=== PATIENT | female | born 1965 | race Caucasian/White ===

== ENCOUNTER 2018-11-17 21:53 | Inpatient (IN) | payer MEDICARE, SELFPAY ==
[2018-11-17 22:07] VITALS: BP 145/79; PULSE 96; RESP 17; TEMP 37; O2SAT 96
--- NOTE | 2018-11-17 22:31 | ED.GENADUL_ITS ---
Discharge Plan Disposition Patient Disposition: [facility] INPATIENT Condition: Stable Discharge Details Chief Complaint: PsychEval Clinical Impression: Acute paranoia, History of schizophrenia Primary Care Provider: Colleen,Local ED Provider: Tatum Lawler Home Meds and New Rx's Prescriptions: No Action risperidone [Risperdal] 2 mg Tablet 1 mg QHS RF: 0 Discharge Data Discharge Physician: Tatum Lawler Medical Decision Making <Yang Donovan MD - Last Filed: 11/18/18 08:16> Patient here for medical screening/mental health eval. Reportedly has history of schizophrenia. At this time she is unable to tell me where she is, what the date is, who is looking for her, who the president is. She is able to tell me where she is from and is able to spell world forward and backwards. She is definitely evasive. I will hold her here for mental health eval. I was able to speak to the patient's son, Nuno. He reports that she does have a history of schizophrenia. She did go missing once before but only for a couple of hours. She is supposed to be on IM injections monthly for her psychiatric disorder. He and probably other family members will be on their way up overnight and will be here in the morning. Patient's laboratory studies are unremarkable. White count is little elevated. Chemistries are fine. Alcohol level is 0. She is being cooperative for the most part. She will not answer questions for mental health. I am not going to EEG her because I think she is probably baseline. However, I cannot let her leave on her own due to lack of capacity. I do think she will probably be safe to be released into the care of her son. 01:00 - Tylenol and aspirin have come back negative. Urine drug screen positive for barbiturates and amphetamines. Urinalysis negative. Patient remains cooperative. She has been offered food and water which she is declined. She has been offered a blanket that she can go to sleep which she is also declined. She is aware that she is waiting till morning for reevaluation and possible discharge. 08:00 -still waiting for son to arrive. Patient without issue overnight. Urine drug screen was eventually obtained and is positive for barbiturates and amphetamines. Definitely may be contributing to her increased paranoia. Still think she is safe for discharge into the son's care if he agrees she seems to be baseline for him. Lab Data Lab results reviewed: Yes I reviewed the patient's lab results. <Tatum Lawler DO - Last Filed: 11/18/18 20:17> Please see Dr. Donovan's note for initial presentation, exam and plan. Patient is a 53-year-old female with a history of schizophrenia who presented for mental health evaluation after found at a nearby gas station and determined to be a missing person from [place]. Per Dr. Donovan's evaluation and discussion with son, it was thought that she was most likely at her baseline and could be released into the care of her son. She was medically cleared and plan upon endorsement was to wait for her son to arrive to take her back home. 1800 --son now here in the ED and patient is refusing to go with him. After long discussion with son, he states that he is concerned with taking patient home as he is unsure of his or her safety. He states that she seems at her baseline when she has episodes of paranoia associated with her schizophrenia, but he states that he is concerned if he attempts to rest for the night, he is unsure if she will leave or what she will do. Patient discussed with me that she is refusing to go with him. Patient denies to me a history of schizophrenia. Patient states she would like to stay in the emergency department. She appears to lack insight into her current condition and I do not think she has a capacity to make her own decisions. She expressed to care management that she would like to be admitted to a psychiatric facility - She has refused this plan to me as well as mental health. Discussed with mental health and patient seems appropriate for involuntary psychiatric hospitalization at this time as she is refusing to go with son and will not leave the ED. EE paperwork completed. Will admit patient to the floor overnight while awaiting inpatient hospitalization and second certificate completion in 24 hours. 1999 --Case discussed with hospitalist Dr. Juan -accepts patient for admission to the floor. HPI <Yang Donovan MD - Last Filed: 11/18/18 08:16> General Mode of arrival: ambulatory . Date/Time Provider Initiated Documentation: 11/17/18 22:18 . Limitations to Documentation: other (psych) . Information obtained by: patient and police . HPI Narrative: Patient presents to ED with police for mental health evaluation. Patient is apparently from [place]. There has been a missing person alert for the last 2 days from [place]. Per the police here, [place] police report that she has schizophrenia. She does tell me she has medication, Risperdal. She denies any medical or surgical history. She denies drug or alcohol use. She has no physical complaints of. She was found in the parking lot of a local truck stop where she is been all day. She denies being suicidal or homicidal. She is able to tell me where she is from and what the year is but she is unable to tell me where she is, the month, the date, the president. Related Data Home Medications Medication Instructions Recorded Confirmed risperidone [Risperdal] 11/17/18 Allergies Allergy/AdvReac Type Severity Reaction Status Date / Time No Known Allergies Allergy Unverified 11/17/18 22:14 General Stated Complaint: PsychEval AVELINO: 2 Review of Systems <Yang Donovan MD - Last Filed: 11/18/18 08:16> Review of Systems Unobtainable due to mental condition [facility] <Yang Donovan MD - Last Filed: 11/18/18 08:16> Medical History Schizophrenia (Chronic) Social History Smoking/Tobacco Use Status: Never Alcohol Intake: never Drug use: Never Do you feel safe at home: No Exam <Yang Donovan MD - Last Filed: 11/18/18 08:16> Narrative Exam Narrative: Vitals: Afebrile. Mildly tachycardic with elevated blood pressure. Const: WDWN female in NAD. HEENT: NC/AT. Normal facial exam. Eyes: Normal conjunctiva and sclera. PERRL and EOMI. Neck: Supple. Trachea midline. Lungs: Normal respiratory effort. Lungs are clear. Cor: RRR without murmur/gallop. Good radial pulses. Neuro: A+O x 1. CN grossly in tact. Good strength and no focal deficit. Tremor present in hands. Gait normal. Speech normal. Ext: No C/C/E. No deformity or tenderness. Skin: Warm and dry without rash. Psych: Pleasant. Evasive. Denies SI or HI. Denies hallucinations. Course <Yang Donovan MD - Last Filed: 11/18/18 08:16> Vital Signs Temperature 98.6 F 11/17/18 22:07 Pulse 96 H 11/17/18 22:07 Respiratory Rate 17 11/17/18 22:07 Blood Pressure 145/79 H 11/17/18 22:07 Pulse Oximetry 96 11/17/18 22:07 Temperature 98.6 F 11/17/18 22:07 Temperature Source Temporal Artery Scan 11/17/18 22:07 Pulse 96 H 11/17/18 22:07 Respiratory Rate 17 11/17/18 22:07 Respiratory Effort 11/17/18 22:07 Blood Pressure 145/79 H 11/17/18 22:07 Pulse Oximetry 96 11/17/18 22:07 Oxygen Delivery Method Room Air 11/17/18 22:07 Oxygen Flow Rate 0 11/17/18 22:07 Pain Level 0 11/17/18 22:07 Sign Out <Yang Donovan MD - Last Filed: 11/18/18 08:16> Sign Out Data: Sign Out Comment: Still waiting for the patient's son to arrive. Patient has slept all night and there have been no issues. Case discussed with Dr. Lawler who is accepting patient in signout with plan to release patient into the care of her son once he arrives. Last updated by Yang Donovan MD at 11/18/18 08:15
--- NOTE | 2018-11-17 22:45 | NUR.NOTE ---
Nursing Note: pt is now in paper srubs and has cpso at the room with pt and mh has been called
--- NOTE | 2018-11-17 22:46 | NUR.NOTE ---
Nursing Note: talked with damaso thakur about who put out missing person on the pt, the trolanei was going to call [facility] police to get more information and call us back
[2018-11-17 23:20] LABS: Abs Immature Grans 0.03 k/cumm (0.0-0.09); Absolute Basophil Count 0.04 k/cumm (0.0-0.2); Absolute Eosinophil Count 0.18 k/cumm (0.0-0.7); Absolute Monocyte Count 1.24 k/cumm (0.11-0.7); Absolute Neutrophil Count 10.11 k/cumm (1.2-6.7); Basophils % 0.3; Eosinophils % 1.3; HCT 43.5 % (36.0-46.0); HGB 14.5 g/dL (12.0-15.5); Immature Grans % 0.2; Lymphocytes % 18.3; Mean Corp. HGB Concentration 33.3 g/dL (32.0-36.0); Mean Corpuscular Hemoglobin 29.7 pg (27.0-33.0); Mean Corpuscular Volume 89.1 fL (80-95); Mean Platelet Volume 9.4 fL (8.0-11.0); Monocytes % 8.7; Neutrophils % 71.2; Platelet Count 409 x1000/uL (130-400); RBC 4.88 m/cumm (4.00-5.20); RBC Distribution Width 13.1 % (11.7-14.6)
[2018-11-17 23:43] LABS: ALT 17 U/L (12-78); AST 13 U/L (15-37); Alkaline Phosphatase 72 U/L (46-116); Anion Gap 14.7 mmol/L (3-11); BUN 16 mg/dL (7-18); Bilirubin, Total 0.6 mg/dL (0.2-1.0); CO2 22.3 mmol/L (21.0-32.0); CREATININE 0.85 mg/dL (0.55-1.02); Chloride 101 mmol/L (98-107); Glucose 125 mg/dL (70-100); Potassium 3.5 mmol/L (3.5-5.1); Sodium 138 mmol/L (136-145); TSH 4.47 uIU/mL (0.358-3.74); Total Protein 8.1 g/dL (6.4-8.2)
[2018-11-17 23:44] LABS: ETHANOL BLOOD < 3.0 mg/dL (<3)
--- NOTE | 2018-11-17 23:59 | PDOC.MHCN ---
Mental Health Crisis Note Presenting Issue How did you arrive at the ED and why did you come: Patient stated police brought me here, I didn't do anything wrong. Emergency worker inquired where patient was picked up? Patient stated from the area. Emergency worker inquired if patient lives near by? Patient stated that shes from the area. Precipitating Factors Patient denies feelings of SI/HI. Patient denies hallucinations of any kind. Disposition BEHAVIOR: Patient appeared annoyed that emergency worker was asking questions. Patient stated don't you have my chart in front of you. EYE CONTACT: Patient made some eye contact during screening. MOOD: annoyed AFFECT: flat APPETITE: Patient stated her appetite was fine. SLEEP(trouble falling/staying asleep: Patient stated everything's good Plan Patient stated that she would e staying the night here at the hospital. Emergency worker spoke with Doctor and learned that patient had been picked up by the state police in the parking lot of [facility], [place], the store team member stated that she had been there in her car all day. Patient was reported missing from [place] since Tuesday. Patients son will be coming to get her in the morning as he has about an eight [address] drive. Patients son shared that Parul takes a monthly shot to manage schizophrenia episodes, yesterday she was due for her next shot and missed it. Patient was not able to tell Emergency worker where she was from and was not willing to share anymore information. The Doctor stated that patient would stay here until her son picks her up in the morning. Signature Clinician's Name/Title: Matthew Webber/ Emergency services worker
[2018-11-18] VITALS (12 sets, daily range): BP systolic 124–145; BP diastolic 79–82; PULSE 84–96; RESP 13–22; TEMP 37; O2SAT 95–96
[2018-11-18 00:08] LABS: Salicylate < 2.8 mg/dL (2.8-20.0)
--- NOTE | 2018-11-18 00:22 | PDOC.MHCN_ITS ---
Mental Health Crisis Note Presenting Issue How did you arrive at the ED and why did you come: Patient stated police brought me here, I didn't do anything wrong. Emergency worker inquired where patient was picked up? Patient stated from the area. Emergency worker inquired if patient lives near by? Patient stated that shes from the area. Precipitating Factors Patient denies feelings of SI/HI. Patient denies hallucinations of any kind. Disposition BEHAVIOR: Patient appeared annoyed that emergency worker was asking questions. Patient stated don't you have my chart in front of you. EYE CONTACT: Patient made some eye contact during screening. MOOD: annoyed AFFECT: flat APPETITE: Patient stated her appetite was fine. SLEEP(trouble falling/staying asleep: Patient stated everything's good Plan Patient stated that she would e staying the night here at the hospital. Emergency worker spoke with Doctor and learned that patient had been picked up by the state police in the parking lot of [facility], the storeroom clerk stated that she had been there in her car all day. Patient was reported missing from [place] since Tuesday. Patients son will be coming to get her in the morning as he has about an eight [address] drive. Patients son shared that Parul takes a monthly shot to manage schizophrenia episodes, yesterday she was due for her next shot and missed it. Patient was not able to tell Emergency worker where she was from and was not willing to share anymore information. The Doctor stated that patient would stay here until her son picks her up in the morning. Signature Clinician's Name/Title: Matthew Webber/ Emergency services worker
[2018-11-18 00:25] LABS: Acetaminophen < 2 ug/mL (10-30)
[2018-11-18 00:54] LABS: Bilirubin Negative (Negative); Blood Trace-intact (Negative); Clarity Clear; Glucose Negative (Negative); Ketones Negative (Negative); Leukocyte Esterase Negative (Negative); Nitrite Negative (Negative); Specific Gravity >= 1.030 (1.005-1.025); Urobilinogen 0.2 EU/dL (Up TO 0.2)
[2018-11-18 01:01] LABS: Bacteria Moderate HPF (Negative); C & S Indicated? No/Sq. Contamination; Casts Negative LPF (Negative); Crystals Negative HPF (Negative); Epithelial Cells Many HPF (Negative); Mucus Heavy (Negative); RBC 0-2 (0-2); WBC 0-2 HPF (0-5)
[2018-11-18 01:04] LABS: *AMPHETAMINES SCREEN URINE POSITIVE (Negative); *BARBITURATES SCREEN URINE POSITIVE (Negative); *BENZODIAZEPINES SCREEN URINE Negative (Negative); Cannabinoids THC Negative (Negative); Cocaine Screen,Urine Negative (Negative); METHADONE URINE SCREEN Negative (Negative); OPIATES URINE SCREEN Negative (Negative); Tricyclic Antidepressants Negative (Negative)
--- NOTE | 2018-11-18 18:04 | NUR.NOTE ---
son of PT arrived at 1800. son talked with PT and reports to RN that PT does not want to return home with son. previously PT has stated to RN 3 times that she had no son. provider and RN attempting to negotiate and form a plan of action to dispo PT
--- NOTE | 2018-11-18 18:11 | CMPROGNOTE_ITS ---
- If Service Date Differs Date of service: 11/18/18 Time of Service: 13:30 Care Management Progress Note S/O: IRIS met with Parul in the ED she was found at local store and was brought to the hospital for safety concerns. Parul is not engaged she appears distracted and restless when CM into assess. She stares and often does not speak. IRIS asked Parul if she had a family she said no I am my own family. When CM brought up her sons name Nuno she denies having a son. During the assessment she is able to state I do have a son but we do not communicate. Parul is willing to allow CM to obtain Nuno's number from her cell phone to contact him. Parul states she is fine she expresses no needs. She is in paper clothing and has a CPSO outside the room. She was evaluated by mental health and it was determine that she was not suicidal or homicidal. IRIS requested permission from Parul to contact Nuno she is able to give CM verbal permission to do so. IRIS contacted Nuno [phone] and he states Parul does have a history of bipolar and schizophrenia and has has several hospitalizations related to her diagnosis in the past 10 years. He states in August she was found in [facility] in the same condition. He states that she was recently started on IM injections of her medications as she has a history of non compliance. He states she does receive community support services through mental health agency in [place]. He states it is not uncommon for her to take off in her car it seems to be the only independence she has. He episodes are more frequent when she is feeling stressed or with change. She has been accepted into a housing program and is due to move in on Tuesday he states this has been a stressful time for her due to the change. He feels that she will need assisted living at some point. Nuno will be here between 0 and 1829 to pick Parul up and bring her back to [place]. She will remain with CPSO as she is a elopement risk given the circumstance. CM did review with the patient measures to keep her safe until her son arrives and she agrees with the plan. Safety plan: 1. Parul remains in the ED with CPSO one on one observation due to her risk of elopement and her current ability to make decisions. 2. She remains in paper clothing and will change once her son arrives. 3. She will need CPSO with her at all times when out of the room. 4. No other restrictions at this time she will be discharged in her sons care once he arrives to the ED. Plan: Parul will return to [place] to her community supports with her son at time of discharge. Parul acknowledges the plan and does not agree or disagree with the plan. Parul will remain in the ED until family member arrives.
--- NOTE | 2018-11-18 18:59 | NUR.NOTE ---
PT has talked to RN, mental health, and provider in regards to being admitted to mental health facility. PT gave breef celery tier to each individual. firstly stating that she did and ending with no way
--- NOTE | 2018-11-18 19:09 | NUR.NOTE ---
RN and mental health both believe that PT is exhibiting extreme suspicion and mistrust in all her interactions. son states that i think my mom is scared but its hard to tell some times, i don't feel safe taking her home
--- NOTE | 2018-11-18 19:12 | NUR.NOTE ---
mental health advises that patient be EEd
--- NOTE | 2018-11-18 20:48 | W.PM.HP.N ---
Date of service: 11/18/18 Time of Service: 20:48 Assessment and Plan (1) Acute paranoia: Start date: 11/18/18 Current visit: Yes Status: Acute This is a 53-year-old lady from [place] who drove up to [place] and appears to have acute paranoia with confusion off her usual medical therapy for hernia. According to her family she usually receives a monthly injection for her schizophrenia and according to her medication list, she takes an antipsychotic orally on a nightly basis. We cannot confirm her actual medications but will continue risperidone at night if she allows. She also will have Ativan as needed for agitation. Mental health is consulted and will be attempting placement with involuntary inpatient psychiatric admission locally. She will be placed on observation until placed in psychiatric hospital. She may require another EE in 24 hours if she is not placed within that timeframe. (2) Schizo-affective type schizophrenia, subchronic state with acute exacerbation: Start date: 11/18/18 Current visit: Yes Status: Chronic Continue risperidone as patient allows needed. Minimize stimulation which seems to agitate patient. (3) Polysubstance abuse: Start date: 11/18/18 Current visit: Yes Status: Acute Patient's urine drug screen was positive for amphetamines and barbiturates but not opiates. Patient is not able to discuss drug use. (4) TSH elevation: Start date: 11/18/18 Current visit: Yes Status: Acute A thyroid cascade will be drawn in the morning of the evaluation of his elevated TSH which may contribute to psychiatric disease. Initiation of treatment can begin if severely hypothyroid though this is unlikely with a mildly elevated TSH. This would be most appropriate dress with her usual caregivers in [place]. History of Present Illness Chief Complaint: Brought in by police as a missing person from [place] Narrative: This is a 53-year-old lady who was found in her car for an extended period of time a local convenience store parking lot. The police were called to check her out and discovered that she was not missing person from [place]. She was brought to the ED for evaluation and was found to have paranoid ideation especially about her family and was not oriented to place or time though she appeared to know who she was and where her home was being in [place]. After an extended period of time in the ED and medical clearance, the patient was to return home to [place] with her son driving overnight to retrieve her. When her son arrived in the ED she refused to leave with her son and refused to leave the ED. She appeared to have increasing paranoia with her family members arrived. Mental health evaluation throughout her initial stay was to arrange for her to voluntarily return home with her family but after she refused and after initially agreeing to go to a local inpatient psychiatric hospital, she was EE'ed by psychiatry, she was admitted for observation overnight for possible placement in the morning. When I interviewed the patient she did tell me that she was on [employer] and that she was not working but had no ability to give further history other than that she was not working. She became more agitated and began to restlessly move her upper and lower extremities during my interview and minimize my interaction. She was not able to offer review of systems. She does state that she drives and has a car which she drove up from [place]. She was not aware she was in [place]. ED evaluation did discover a positive urine drug screen for barbiturates with patient not having any prescribed medications possibly having polysubstance abuse which may worsen her psychiatric symptoms. Review of Systems Review of Systems Unobtainable due to mental condition [facility] Medical History Schizophrenia (Chronic) Social History Smoking/Tobacco Use Status: Never Alcohol Intake: never Drug use: Never Do you feel safe at home: No Meds Home Medications Medication Instructions Recorded Confirmed Type risperidone [Risperdal] 1 mg QHS 11/17/18 11/18/18 History Allergies Allergy/AdvReac Type Severity Reaction Status Date / Time No Known Allergies Allergy Unverified 11/17/18 22:14 Exam Narrative Exam Narrative: General: Patient appears appropriate for age, she is extremely anxious flattened affect and decreased eye contact. He becomes tremulous when interacting with conversation. She is oriented to person but not place time or purpose. She was sleeping when I first approached her and awakened by knocking on the door and did not appear anxious initially but became increasingly agitated during conversation. HEENT: Normocephalic eyes revealing pupils equal reactive light symmetrically, extraocular movement intact and sclera anicteric. Oropharynx with pink moist mucosa. External ears normal. Neck: Supple without JVD. Back: Stooped posture without CVA tenderness. Lungs: Clear to auscultation percussion. Heart: 3/6 systolic murmur over left sternal border, regular rate and rhythm without gallops. Breast: Not examined. Abdomen: Obese with slightly protuberant contour, soft and nontender to palpation with no palpable hepatosplenomegaly. Bowel sounds normal in all quadrants. Genitalia rectal exam: Not performed Extremities: Without clubbing cyanosis or pitting edema. Neuro: Cranial nerves II through XII grossly intact, no focalizing motor deficits. Skin: Warm and dry without rashes limited exam. Psych: As per general description patient appearing to be increasingly agitated with conversation with her paranoia. Results Labs : 11/17/18 23:15 11/17/18 23:15 Laboratory Results - last 24 hr 11/17/18 11/17/18 11/17/18 23:15 23:15 23:15 WBC 14.20 H RBC 4.88 Hgb 14.5 Hct 43.5 MCV 89.1 MCH 29.7 MCHC 33.3 RDW 13.1 Plt Count 409 H MPV 9.4 Immature Gran % 0.2 Neutrophils % 71.2 Lymphocytes % 18.3 Monocytes % 8.7 Eosinophils % 1.3 Basophils % 0.3 Absolute Neutrophils 10.11 H Absolute Lymphocytes 2.60 Absolute Monocytes 1.24 H Absolute Eosinophils 0.18 Absolute Basophils 0.04 Sodium 138 Potassium 3.5 Chloride 101 Carbon Dioxide 22.3 Anion Gap 14.7 H BUN 16 Creatinine 0.85 Estimated GFR/1.73 m2 >= 60.00 Glucose 125 H Calcium 9.0 Total Bilirubin 0.6 AST 13 L ALT 17 Alkaline Phosphatase 72 Total Protein 8.1 Albumin 4.0 TSH 4.47 H Urine Color Urine Clarity Urine pH Ur Specific [place] Urine Protein Urine Ketones Urine Blood Urine Nitrite Urine Bilirubin Urine Urobilinogen Ur Leukocyte Esterase Urine RBC Urine WBC Ur Epithelial Cells Urine Crystals Urine Bacteria Urine Casts Urine Mucus Ur Culture Indicated? Urine Glucose Salicylates < 2.8 L Urine Opiates Screen Urine Methadone Screen Acetaminophen < 2 L Ur Barbiturates Screen Ur Tricyclics Screen Ur Amphetamines Screen U Benzodiazepines Scrn Urine Cocaine Screen Ur THC Screen Ethyl Alcohol < 3.0 11/18/18 11/18/18 00:48 00:48 WBC RBC Hgb Hct MCV MCH MCHC RDW Plt Count MPV Immature Gran % Neutrophils % Lymphocytes % Monocytes % Eosinophils % Basophils % Absolute Neutrophils Absolute Lymphocytes Absolute Monocytes Absolute Eosinophils Absolute Basophils Sodium Potassium Chloride Carbon Dioxide Anion Gap BUN Creatinine Estimated GFR/1.73 m2 Glucose Calcium Total Bilirubin AST ALT Alkaline Phosphatase Total Protein Albumin TSH Urine Color Yellow Urine Clarity Clear Urine pH 6.0 Ur Specific [place] >= 1.030 H Urine Protein 100 H Urine Ketones Negative Urine Blood Trace-intact H Urine Nitrite Negative Urine Bilirubin Negative Urine Urobilinogen 0.2 Ur Leukocyte Esterase Negative Urine RBC 0-2 Urine WBC 0-2 Ur Epithelial Cells Many Urine Crystals Negative Urine Bacteria Moderate Urine Casts Negative Urine Mucus Heavy Ur Culture Indicated? No/sq. contamination Urine Glucose Negative Salicylates Urine Opiates Screen Negative Urine Methadone Screen Negative Acetaminophen Ur Barbiturates Screen Positive Ur Tricyclics Screen Negative Ur Amphetamines Screen Positive U Benzodiazepines Scrn Negative Urine Cocaine Screen Negative Ur THC Screen Negative Ethyl Alcohol Last Vital Signs Temp 37.0 C 11/17/18 22:07 Pulse 96 H 11/17/18 22:07 Resp 16 11/18/18 20:17 BP 145/79 H 11/17/18 22:07 Pulse Ox 96 11/17/18 22:07
--- NOTE | 2018-11-18 21:02 | PDOC.ERCMPRO ---
- If Service Date Differs Date of service: 11/18/18 Time of Service: 21:02 Care Management Progress Note INVOLUNTARY FOR INPATIENT PSYCHIATRIC STABILIZATION. Per report Parul was found outside a local store in her car. Parul was brought in to the ED to be evaluated. At that time her family was contacted and mental health cleared her to leave with her son to return to her supports in [place]. Once her son arrived she was unwilling to go with him and he expressed concern that she would not go willingly. Parul has been unable to engage with CM during assessments. She appears guarded and agitated. She is not willing to return with her son to [place]. She states she wants to be hospitalized in a psychiatric hospital, and states clearly ?I don?t like my family and I am not going back to [place] with them?. CM spoke to her son Nuno who arrived to pick her up and he is concerned that she will not be safe to transport back with him. IRIS spoke with her sister Cierra who has been her support person in the past and states that her sister can be ?stubborn?. Cierra states Parul has been receiving support services through organization called [employer] and that she has a psychiatric provider there. She received monthly injections and she was due to receive last injection on 11/15/18 which she missed. In the past Parul has eloped before and has not been med compliant. Parul has recently had many changes including the of her mom whom she was caring for and moving out of the family home. Per her family she tends to have increased stress with any change. Mental Health reevaluated the patient and at that point she said that she was unwilling to be voluntarily admitted to psychiatric facility. Plan will be to find appropriate placement at psychiatric facility and she will be admitted involuntary at this time. CM did meet with Parul and reviewed the plan with her. Her response is minimal and disengaged. CM will continue to assist with support and ongoing assessment. Due to involuntary status and flight risk Parul will remain with a safety plan and CPSO coverage until she is transferred to a psychiatric facility for stabilization. Mental health to coordinate placement and transportation at time of transfer. Parul will need a second cert which should occur tomorrow 11/19/18. CM did review the plan with patient, care team in the ED and admitting unit. Safety plan has been established with patient, and care team, to adhere to patient goals, identify restrictions based on behavioral status, address nutrition, and determine allowed personal belongings, tools for hygiene and personal care. Determine level of activity including ambulation, level of supervision, visitors, and determine privileges based on behaviors and level of engagement by pt. SAFETY PLAN: 1. Will remain on suicide precautions. In Paper Clothes 2. Will remain in room under direct supervision of one-on-one staff at all times provided by CPSO; RUSH, NATURAL GAS INSPECTOR civil laboratory technician. 3. May have paper cups, plates, finger foods as well as a metal spoon with which to eat meals. [facility] staff will be responsible for accounting of utensils after meals. 4. Follow [facility] Management of the Admitted Behavioral Health Patient policy. 5. Comfort bath or shower with supervision. 6. No personal belongings 7. Visitors-Son Nuno or Sister Cierra at the discretion of the primary care team. 8. Activities: Coloring, music, television, cards, crayons or markers 9. Phone: Patient may talk to her sister Cierra or her son Nuno over the phone at the discretion of primary care team. Patient is currently involuntarily at [facility] and seeking inpatient admission when a bed becomes available. [facility] Front[facility] [employer] will continue seeking placement. Please contact the Geophysical Manager Public Health Dietitian ([phone]) and [facility] Spring [employer]ater ([phone]) for any needed changes in the Safety Plan. Safety plan has been reviewed and in the EMR for view. CM provided copy to receiving unit.
--- NOTE | 2018-11-18 21:07 | CMPROGNOTE_ITS ---
- If Service Date Differs Date of service: 11/18/18 Time of Service: 21:02 Care Management Progress Note INVOLUNTARY FOR INPATIENT PSYCHIATRIC STABILIZATION. Per report Parul was found outside a local store in her car. Parul was brought in to the ED to be evaluated. At that time her family was contacted and mental health cleared her to leave with her son to return to her supports in [place]. Once her son arrived she was unwilling to go with him and he expressed concern that she would not go willingly. Parul has been unable to engage with CM during assessments. She appears guarded and agitated. She is not willing to return with her son to [place]. She states she wants to be hospitalized in a psychiatric hospital, and states clearly ?I don?t like my family and I am not going back to [place] with them?. CM spoke to her son Nuno who arrived to pick her up and he is concerned that she will not be safe to transport back with him. IRIS spoke with her sister Cierra who has been her support person in the past and states that her sister can be ?stubborn?. Cierra states Parul has been receiving support services through organization called [employer] and that she has a psychiatric provider there. She received monthly injections and she was due to receive last injection on 11/15/18 which she missed. In the past Parul has eloped before and has not been med compliant. Parul has recently had many changes including the of her mom whom she was caring for and moving out of the family home. Per her family she tends to have increased stress with any change. Mental Health reevaluated the patient and at that point she said that she was unwilling to be voluntarily admitted to psychiatric facility. Plan will be to find appropriate placement at psychiatric facility and she will be admitted involuntary at this time. CM did meet with Parul and reviewed the plan with her. Her response is minimal and disengaged. CM will continue to assist with support and ongoing assessment. Due to involuntary status and flight risk Parul will remain with a safety plan and CPSO coverage until she is transferred to a psychiatric facility for stabilization. Mental health to coordinate placement and transportation at time of transfer. Parul will need a second cert which should occur tomorrow 11/19/18. CM did review the plan with patient, care team in the ED and admitting unit. Safety plan has been established with patient, and care team, to adhere to patient goals, identify restrictions based on behavioral status, address nutrition, and determine allowed personal belongings, tools for hygiene and personal care. Determine level of activity including ambulation, level of supervision, visitors, and determine privileges based on behaviors and level of engagement by pt. SAFETY PLAN: 1. Will remain on suicide precautions. In Paper Clothes 2. Will remain in room under direct supervision of one-on-one staff at all times provided by CPSO; RUSH, MENTAL TESTER cutting and creasing press operator. 3. May have paper cups, plates, finger foods as well as a metal spoon with which to eat meals. [facility] staff will be responsible for accounting of utensils after meals. 4. Follow [facility] Management of the Admitted Behavioral Health Patient policy. 5. Comfort bath or shower with supervision. 6. No personal belongings 7. Visitors-Son Nuno or Sister Cierra at the discretion of the primary care team. 8. Activities: Coloring, music, television, cards, crayons or markers 9. Phone: Patient may talk to her sister Cierra or her son Nuno over the phone at the discretion of primary care team. Patient is currently involuntarily at [facility] and seeking inpatient admission when a bed becomes available. [facility] Frontline Reel Cutter will continue seeking placement. Please contact the Fabric Sourcer 3D Artist ([phone]) and [facility] Reel Cutter ([phone]) for any needed changes in the Safety Plan. Safety plan has been reviewed and in the EMR for view. CM provided copy to receiving unit.
--- NOTE | 2018-11-18 21:12 | PDOC.MHCN ---
Date of service: 11/18/18 Time of Service: 21:12 Mental Health Crisis Note Presenting Issue How did you arrive at the ED and why did you come: Arrived at the emergency room due to she being called in to the police due to being in a convenient store parking lot for an extended period of time. When the police met up with her, it was discovered she was called in as a missing person. Precipitating Factors Parul denies suicidal or homicidal ideation, planning, intent or attempts. She denies homicidal ideation, planning, intent, or attempts. She reports that she has to get away from her family. She has a history of schizophrenia and mood disorder. She is disoriented to time, place, and situation, she seems to have impaired judgment as she continued to change her mind. She presented with signs of paranoia when family was here. Disposition BEHAVIOR: blunted and slightly vague EYE CONTACT: poor MOOD: depressed AFFECT: blunted/condensed APPETITE: good SLEEP(trouble falling/staying asleep: good
--- NOTE | 2018-11-18 22:17 | NUR.NOTE ---
Pt was admitted to the Med/Surg unit from the ER for suicidal precautions with a one-on-one staff at all times. She is receptive to care and assessment at this time. But state she does not want any of her family from [place] to visit her while she is at the hospitalize. She currently denying any suicidal ideation and she is calm and relax currently. Further assessment are charted.
[2018-11-19 07:06] LABS: FREE T4 1.36 ng/dL (0.76-1.46)
[2018-11-19 07:24] VITALS: BP 130/81; PULSE 78; RESP 16; TEMP 36.4; O2SAT 96
--- NOTE | 2018-11-19 10:36 | PHARADMIT ---
Admission Pharmacy Clinical Review ACUTE PARANOIA, SCHIZOPHRENIA-Untreated (Observation) EE status Code Status Full Code Current Weight 95.254 kg Renally Cleared and Narrow Therapeutic Index Meds CrCl~85ml/min QTc Value / Action Taken BP Control, Fever BP 130/81 Afebrile Electrolytes reviewed labs pending DVT Prophylaxis Opiate Usage / Scheduled Bowel Regimen Ordered Plt/SCr for Heparin / Enoxaparin INR for Warfarin H/H stable, WBC/Bands Antibiotic appropriateness Cultures and Sensitivities Surgical ABX d/c within 24 hr DM control / Insulin Dosing Heart Failure (Check EF%) (ENZO's, B-Block, Diuretics) IV to PO Switch Home Meds Reviewed Home Meds Not Ordered ok Comments Mental health involved, need medical records from [place] Has MANAGER INVESTMENT patient observer, no suicidal ideation reported at this time
[2018-11-19 10:58] LABS: Abs Immature Grans 0.02 k/cumm (0.0-0.09); Absolute Eosinophil Count 0.19 k/cumm (0.0-0.7); Absolute Lymphocyte Count 2.64 k/cumm (1.2-3.4); Absolute Monocyte Count 1.14 k/cumm (0.11-0.7); Absolute Neutrophil Count 7.24 k/cumm (1.2-6.7); Basophils % 0.4; Eosinophils % 1.7; HCT 41.2 % (36.0-46.0); HGB 13.8 g/dL (12.0-15.5); Immature Grans % 0.2; Lymphocytes % 23.4; Mean Corp. HGB Concentration 33.5 g/dL (32.0-36.0); Mean Corpuscular Hemoglobin 30.1 pg (27.0-33.0); Mean Platelet Volume 9.6 fL (8.0-11.0); Monocytes % 10.1; Neutrophils % 64.2; Platelet Count 405 x1000/uL (130-400); RBC 4.58 m/cumm (4.00-5.20); RBC Distribution Width 12.8 % (11.7-14.6); White Blood Cell Count 11.27 k/cumm (4.4-10.8)
[2018-11-19 11:02] LABS: Absolute Basophil Count 0.05 k/cumm (0.0-0.2)
[2018-11-19 11:03] LABS: Anion Gap 10.2 mmol/L (3-11); BUN 15 mg/dL (7-18); CO2 26.8 mmol/L (21.0-32.0); CREATININE 0.57 mg/dL (0.55-1.02); Chloride 103 mmol/L (98-107); Glucose 95 mg/dL (70-100); Magnesium 2.1 mg/dL (1.8-2.4); Potassium 3.7 mmol/L (3.5-5.1); Sodium 140 mmol/L (136-145)
--- NOTE | 2018-11-19 11:28 | W.INMHPGNOTE ---
Date of service: 11/19/18 Time of Service: 11:29 Mental Health Crisis Note Presenting Issue How did you arrive at the ED and why did you come: Parul arrived at the emergency room through P due to being in a parking lot and for a long time. When the wellness check was completed, it was discovered that she was a runaway from [place]. Precipitating Factors Parul has a history of being treated for mood disorder and psychoses. She does not have any insight into her symptoms of mental illness. She denies she is suicidal or homicidal at this time. However, her thinking remains disorganized. She also does not have a plan as to how she will care for herself. As a result, her judgment is impaired. She also is adjusting to several other psychosocial stressors in her life regarding her mother's , having to move, and transition into a new phase of her life. Disposition BEHAVIOR: distant, vague, lack of insight EYE CONTACT: poor MOOD: depressed/withdrawn AFFECT: constricted, tense, avoidant APPETITE: fair SLEEP(trouble falling/staying asleep: good Plan 2nd certification has been approved. She will remain at [facility] on 2nd floor. There are not any beds available at [facility], or [facility]. [facility] is not accepting today but will call if changes occur. Signature Clinician's Name/Title: [facility]el [facility]
--- NOTE | 2018-11-19 11:37 | MHPN_ITS ---
Date of service: 11/19/18 Time of Service: 11:29 Mental Health Crisis Note Presenting Issue How did you arrive at the ED and why did you come: Parul arrived at the emergency room through P due to being in a parking lot and for a long time. When the wellness check was completed, it was discovered that she was a runaway from [place]. Precipitating Factors Parul has a history of being treated for mood disorder and psychoses. She does not have any insight into her symptoms of mental illness. She denies she is suicidal or homicidal at this time. However, her thinking remains disorganized. She also does not have a plan as to how she will care for herself. As a result, her judgment is impaired. She also is adjusting to several other psychosocial stressors in her life regarding her mother's , having to move, and transition into a new phase of her life. Disposition BEHAVIOR: distant, vague, lack of insight EYE CONTACT: poor MOOD: depressed/withdrawn AFFECT: constricted, tense, avoidant APPETITE: fair SLEEP(trouble falling/staying asleep: good Plan 2nd certification has been approved. She will remain at [facility] on 2nd floor. There are not any beds available at [facility], or [facility]. [facility] is not accepting today but will call if changes occur. Signature Clinician's Name/Title: [facility] Patel [facility]
--- NOTE | 2018-11-19 14:49 | W.PM.PROGNOT ---
Date of Service Date of service: 11/19/18 Time of Service: 14:49 Assessment and Plan (1) Acute paranoia: Current visit: Yes Status: Acute 2nd EE completed today - the patient continues to require inpatient psychiatric hospitalization - however, no bed is available today. We are hoping to get the patient to a psychiatric bed tomorrow. Her home medications were reviewed - she is normally on Invega sustenna 156 mg IM Q 4 weeks, and she missed her dose on 11/17/18 (2 days ago). She is also supposed to be risperidone 1 mg PO QHS. We will continue risperidone - however, we do not have invega in our hospital. The earliest we would be able to get it here is in 24 hours, which is also the expected day of departure of the patient for her psychiatric bed. At this point, it is not even clear that this medication is right for this patient as, even while on it, she evidently had run away to [place] not too long ago. (2) Schizo-affective type schizophrenia, subchronic state with acute exacerbation: Current visit: Yes Status: Chronic Continue risperidone. Read above (3) Polysubstance abuse: Current visit: Yes Status: Acute Patient's urine drug screen was positive for amphetamines and barbiturates but not opiates. Patient is not able to discuss drug use. (4) TSH elevation: Current visit: Yes Status: Acute TSH is only minimally elevated and is more consistent with subclinical hypothyroidism; her FT4 is within normal limits. No further workup or treatment indicated at this time. (5) Leucocytosis: Current visit: Yes Status: Acute Improved, but etiology is unclear. It is conceivably reactive to psychosis. Given absence of fever or symptoms of infection, no further workup will be pursued - but I will recheck her bloodwork in am. (6) Discharge planning issues: Current visit: Yes Status: Acute Full code. Anticipated transfer to a psychiatric bed tomorrow (7) DVT prophylaxis: Current visit: Yes Status: Acute Not indicated in an ambulatory patient not in the hospital for a medical reason Subjective Interval history since last seen: Ms Jeter has been calm today. She states she is doing fine. Denies dizziness, pain including headache or chest pain, shortness of breath, nausea. Denies cough or dysuria. She states she drove here, but she did not know where here was when I asked her, other that she was at a hospital. Denies hallucinations, visual or auditory. Denies SI/HI. Exam Narrative Exam Narrative: General: Middle Aged female, appears anxious or scared, laying in bed, giving very short answers, A&Ox2 (knows her name and date, does not know that she is in [facility] or the [facility] HEENT: EOMI, MMM; pupils are about 3 mm, symmetric Heart: RRR, no m/r/g Lungs: CTAB GI: abdomen is soft, nontender, nondistended Extremities: no e/c/c BLE's; 2+ pedal pulses B Objective Objective Clinical Data: Abnormal lab results 11/19/18 Range/Units 10:50 WBC 11.27 H (4.4-10.8) k/cumm Plt Count 405 H (130-400) x1000/uL Absolute Neutrophils 7.24 H (1.2-6.7) k/cumm Absolute Monocytes 1.14 H (0.11-0.7) k/cumm Vital Signs Temperature 36.4 C L 11/19/18 07:24 Temperature Source Tympanic 11/19/18 07:24 Pulse 78 11/19/18 07:24 Pulse Rhythm Regular 11/19/18 07:33 Respiratory Rate 16 11/19/18 07:24 Respiratory Effort Non-Labored 11/19/18 07:33 Respiratory Depth Normal 11/19/18 07:33 Respiratory Pattern Normal 11/19/18 07:33 Blood Pressure 130/81 11/19/18 07:24 Pulse Oximetry 96 11/19/18 07:24 Oxygen Delivery Method Room Air 11/19/18 07:24 Oxygen Flow Rate 0 11/19/18 07:24 Pain Level 0 11/19/18 07:24 Intake & Output 11/18/18 11/19/18 11/19/18 23:59 11:59 23:59 Intake Total 450 / 450 Balance 450 / 450 Weight 95.254 kg Intake: Oral 450 / 450 Other: Urine Color Yellow Urine Appearance Clear Voiding Methods Toilet Toilet Toilet Incontinent # Voids 1 Laboratory Results WBC 11.27 k/cumm (4.4-10.8) H 11/19/18 10:50 RBC 4.58 m/cumm (4.00-5.20) 11/19/18 10:50 Hgb 13.8 g/dL (12.0-15.5) 11/19/18 10:50 Hct 41.2 % (36.0-46.0) 11/19/18 10:50 MCV 90.0 fL (80-95) 11/19/18 10:50 MCH 30.1 pg (27.0-33.0) 11/19/18 10:50 MCHC 33.5 g/dL (32.0-36.0) 11/19/18 10:50 RDW 12.8 % (11.7-14.6) 11/19/18 10:50 Plt Count 405 x1000/uL (130-400) H 11/19/18 10:50 MPV 9.6 fL (8.0-11.0) 11/19/18 10:50 Immature Gran % 0.2 11/19/18 10:50 Neutrophils % 64.2 11/19/18 10:50 Lymphocytes % 23.4 11/19/18 10:50 Monocytes % 10.1 11/19/18 10:50 Eosinophils % 1.7 11/19/18 10:50 Basophils % 0.4 11/19/18 10:50 Absolute Neutrophils 7.24 k/cumm (1.2-6.7) H 11/19/18 10:50 Absolute Lymphocytes 2.64 k/cumm (1.2-3.4) 11/19/18 10:50 Absolute Monocytes 1.14 k/cumm (0.11-0.7) H 11/19/18 10:50 Absolute Eosinophils 0.19 k/cumm (0.0-0.7) 11/19/18 10:50 Absolute Basophils 0.05 k/cumm (0.0-0.2) 11/19/18 10:50 Sodium 140 mmol/L (136-145) 11/19/18 10:50 Potassium 3.7 mmol/L (3.5-5.1) 11/19/18 10:50 Chloride 103 mmol/L (98-107) 11/19/18 10:50 Carbon Dioxide 26.8 mmol/L (21.0-32.0) 11/19/18 10:50 Anion Gap 10.2 mmol/L (3-11) 11/19/18 10:50 BUN 15 mg/dL (7-18) 11/19/18 10:50 Creatinine 0.57 mg/dL (0.55-1.02) 11/19/18 10:50 Estimated GFR/1.73 m2 >= 60.00 (mL/min/1.73m2) 11/19/18 10:50 Glucose 95 mg/dL (70-100) 11/19/18 10:50 Calcium 9.0 mg/dL (8.5-10.1) 11/19/18 10:50 Magnesium 2.1 mg/dL (1.8-2.4) 11/19/18 10:50 Total Bilirubin 0.6 mg/dL (0.2-1.0) 11/17/18 23:15 AST 13 U/L (15-37) L 11/17/18 23:15 ALT 17 U/L (12-78) 11/17/18 23:15 Alkaline Phosphatase 72 U/L (46-116) 11/17/18 23:15 Total Protein 8.1 g/dL (6.4-8.2) 11/17/18 23:15 Albumin 4.0 g/dL (3.4-5.0) 11/17/18 23:15 TSH 4.47 uIU/mL (0.358-3.74) H 11/17/18 23:15 Free T4 1.36 ng/dL (0.76-1.46) 11/19/18 06:15 Urine Color Yellow (Yellow) 11/18/18 00:48 Urine Clarity Clear 11/18/18 00:48 Urine pH 6.0 (5-8) 11/18/18 00:48 Ur Specific [place] >= 1.030 (1.005-1.025) H 11/18/18 00:48 Urine Protein 100 mg/dL (Negative) H 11/18/18 00:48 Urine Ketones Negative mg/dL (Negative) 11/18/18 00:48 Urine Blood Trace-intact (Negative) H 11/18/18 00:48 Urine Nitrite Negative (Negative) 11/18/18 00:48 Urine Bilirubin Negative (Negative) 11/18/18 00:48 Urine Urobilinogen 0.2 EU/dL (Up TO 0.2) 11/18/18 00:48 Ur Leukocyte Esterase Negative (Negative) 11/18/18 00:48 Urine RBC 0-2 (0-2) 11/18/18 00:48 Urine WBC 0-2 HPF (0-5) 11/18/18 00:48 Ur Epithelial Cells Many HPF (Negative) 11/18/18 00:48 Urine Crystals Negative HPF (Negative) 11/18/18 00:48 Urine Bacteria Moderate HPF (Negative) 11/18/18 00:48 Urine Casts Negative LPF (Negative) 11/18/18 00:48 Urine Mucus Heavy (Negative) 11/18/18 00:48 Ur Culture Indicated? No/sq. contamination 11/18/18 00:48 Urine Glucose Negative mg/dL (Negative) 11/18/18 00:48 Salicylates < 2.8 mg/dL (2.8-20.0) L 11/17/18 23:15 Urine Opiates Screen Negative (Negative) 11/18/18 00:48 Urine Methadone Screen Negative (Negative) 11/18/18 00:48 Acetaminophen < 2 ug/mL (10-30) L 11/17/18 23:15 Ur Barbiturates Screen Positive (Negative) 11/18/18 00:48 Ur Tricyclics Screen Negative (Negative) 11/18/18 00:48 Ur Amphetamines Screen Positive (Negative) 11/18/18 00:48 U Benzodiazepines Scrn Negative (Negative) 11/18/18 00:48 Urine Cocaine Screen Negative (Negative) 11/18/18 00:48 Ur THC Screen Negative (Negative) 11/18/18 00:48 Ethyl Alcohol < 3.0 mg/dL (<3) 11/17/18 23:15
--- NOTE | 2018-11-19 15:10 | PDOC.CMPRO ---
- If Service Date Differs Date of service: 11/19/18 Time of Service: 15:10 Care Management Progress Note INVOLUNTARY FOR INPATIENT PSYCHIATRIC STABILIZATION. IRIS met with Parul at the bedside today her second cert was approved by [facility]. Parul will remain on Involuntary status at this time until psychiatric facility in [place] is identified. Parul makes eye contact she answers questions minimally. When IRIS arrives to the room she lying in bed starring out the window. IRIS reviewed the safety plan with her including ability to shower and offered activities. CM reviewed referrals and placement for psychiatric placement she states she acknowledges the plan by stating yes. Parul continues to not want to contact her sister or her son. Per her psychiatric providers at [facility] in [place] she normally receives an injections once a month of Invega Sustenna 156 mg IM on the 17th of every month, only other med is Rispeirdone 1 mg qhs. She has been treated for Thyroid in the past however is not taking any medications at this time. Safety plan has been established with patient, and care team, to adhere to patient goals, identify restrictions based on behavioral status, address nutrition, and determine allowed personal belongings, tools for hygiene and personal care. Determine level of activity including ambulation, level of supervision, visitors, and determine privileges based on behaviors and level of engagement by pt. IRIS communicated the plan to the primary RN, RN CC, RN shell core and molding supervisor as well as the provider. IRIS met with mental health [facility] and reviewed referrals. [facility] are considering referral. [facility] will revaluate beds this evening around 1900. MH crisis to coordinate transportation by commercial finance manager when bed is available. SAFETY PLAN: 1. Will remain on safety precautions. In Paper Clothing. 2. Will remain in room under direct supervision of one-on-one staff at all times provided by [employer]; RUSH, GASOLINE DRAGLINE OPERATOR acute coordinator. 3. May have paper cups, plates, finger foods as well as a metal spoon with which to eat meals. [facility] staff will be responsible for accounting of utensils after meals. 4. Follow [facility] Management of the Admitted Behavioral Health Patient policy. 5. Comfort bath or shower with supervision. 6. No personal belongings 7. Visitors- She declines any visitors at this time 8. Activities: Coloring, music, television, cards, crayons or soft tip markers 9. Phone: Patient may talk to her sister Cierra or her son Nuno over the phone at the discretion of primary care team. Patient is currently involuntarily at [facility] and seeking inpatient admission when a bed becomes available. [facility] Frontline Solar Sales Energy Advisor will continue seeking placement. Please contact the Regulatory Product Manager Metal Sprayer Protective Coating ([phone]) and [facility] Solar Sales Energy Advisor ([phone]) for any needed changes in the Safety Plan. Safety plan has been reviewed and in the EMR for view. CM provided copy to receiving unit.
--- NOTE | 2018-11-19 15:42 | CMPROGNOTE_ITS ---
- If Service Date Differs Date of service: 11/19/18 Time of Service: 15:10 Care Management Progress Note INVOLUNTARY FOR INPATIENT PSYCHIATRIC STABILIZATION. IRIS met with Parul at the bedside today her second cert was approved by [facility]. Parul will remain on Involuntary status at this time until psychiatric facility in [place] is identified. Parul makes eye contact she answers questions minimally. When IRIS arrives to the room she lying in bed starring out the window. IRIS reviewed the safety plan with her including ability to shower and offered activities. CM reviewed referrals and placement for psychiatric placement she states she acknowledges the plan by stating yes. Parul continues to not want to contact her sister or her son. Per her psychiatric providers at [facility] in [place] she normally receives an injections once a month of Invega Sustenna 156 mg IM on the 17th of every month, only other med is Rispeirdone 1 mg qhs. She has been treated for Thyroid in the past however is not taking any medications at this time. Safety plan has been established with patient, and care team, to adhere to patient goals, identify restrictions based on behavioral status, address nutrition, and determine allowed personal belongings, tools for hygiene and personal care. Determine level of activity including ambulation, level of supervision, visitors, and determine privileges based on behaviors and level of engagement by pt. IRIS communicated the plan to the primary RN, RN CC, RN ingot supervisor as well as the provider. IRIS met with mental health [facility] and reviewed referrals. Jonathan and KEY are considering referral. [facility] will revaluate beds this evening around 1900. MH crisis to coordinate transportation by transonic engineer when bed is available. SAFETY PLAN: 1. Will remain on safety precautions. In Paper Clothing. 2. Will remain in room under direct supervision of one-on-one staff at all times provided by [employer]; RUSH, CUT OFF SAW OPERATOR METAL form maker. 3. May have paper cups, plates, finger foods as well as a metal spoon with which to eat meals. [facility] staff will be responsible for accounting of utensils after meals. 4. Follow [facility] Management of the Admitted Behavioral Health Patient policy. 5. Comfort bath or shower with supervision. 6. No personal belongings 7. Visitors- She declines any visitors at this time 8. Activities: Coloring, music, television, cards, crayons or soft tip markers 9. Phone: Patient may talk to her sister Cierra or her son Nuno over the phone at the discretion of primary care team. Patient is currently involuntarily at [facility] and seeking inpatient admission when a bed becomes available. [facility] Frontline Java Consultant will continue seeking placement. Please contact the Shipyard Painter Transportation Clerk ([phone]) and [facility] Java Consultant ([phone]) for any needed changes in the Safety Plan. Safety plan has been reviewed and in the EMR for view. CM provided copy to receiving unit.
[2018-11-19 15:55] VITALS: BP 122/79; PULSE 79; RESP 16; TEMP 37.1; O2SAT 94
--- NOTE | 2018-11-19 19:42 | W.INMHPGNOTE ---
Date of service: 11/19/18 Time of Service: 19:42 Mental Health Crisis Note Presenting Issue How did you arrive at the ED and why did you come: Parul arrived to the emergency room as a result of she being called in by a convenience store business center attendant that was concerned with how long she was in her car in a parking lot. Precipitating Factors Parul still presents with poor insight. She has a history of major mental illness including mood disorder and psychoses. She is still disoriented to time, and situation. She is adjusting to major life stressors and seems to be in an acute episode at this time. 2nd certification has been completed and she was still identified in need of treatment. Disposition BEHAVIOR: vague/distant EYE CONTACT: poor MOOD: flat/blank stare, distant AFFECT: flat to blunted APPETITE: fair SLEEP(trouble falling/staying asleep: fair Plan Remain at [facility] for placement in a psychiatric facility. [facility] and [facility] are full. [facility] is full also. Bed checks will continue in a.m. due to patient continuing to meet level of care due to lack of insight and potential symptoms of major mental illness she is at risk of at this time due to decision to leave her home without a plan or means of caring for her mental health treatment needs at this time. Her first medication order has been filled parrish. Dosing time is 10:00 p.m. She will be assessed for medication compliance and treatment cooperation more due to information of her healthcare needs still be gathered from providers in [place] where she came from prior to this incident.
--- NOTE | 2018-11-19 19:56 | MHPN_ITS ---
Date of service: 11/19/18 Time of Service: 19:42 Mental Health Crisis Note Presenting Issue How did you arrive at the ED and why did you come: Parul arrived to the emergency room as a result of she being called in by a convenience store career development specialist that was concerned with how long she was in her car in a parking lot. Precipitating Factors Parul still presents with poor insight. She has a history of major mental illnes s including mood disorder and psychoses. She is still disoriented to time, and situation. She is adjusting to major life stressors and seems to be in an acute episode at this time. 2nd certification has been completed and she was still identified in need of treatment. Disposition BEHAVIOR: vague/distant EYE CONTACT: poor MOOD: flat/blank stare, distant AFFECT: flat to blunted APPETITE: fair SLEEP(trouble falling/staying asleep: fair Plan Remain at [facility] for placement in a psychiatric facility. [facility]. [facility] and [facility] are full. [facility] is full also. Bed checks will continue in a.m. due to patient continuing to meet level of care due to lack of insight and potential symptoms of major mental illness she is at risk of at this time due to decision to leave her home without a plan or means of caring for her mental health treatment needs at this time. Her first medication order has been filled parrish. Dosing time is 10:00 p.m. She will be assessed for medication compliance and treatment cooperation more due to information of her healthcare needs still be gathered from providers in [place] where she came from prior to this incident.
[2018-11-19] MEDS: risperiDONE 1 MG TAB PO (21:30)
[2018-11-20 01:21] VITALS: BP 120/82; PULSE 80; RESP 16; TEMP 36.8; O2SAT 95
[2018-11-20 07:04] LABS: Abs Immature Grans 0.01 k/cumm (0.0-0.09); Absolute Basophil Count 0.05 k/cumm (0.0-0.2); Absolute Eosinophil Count 0.22 k/cumm (0.0-0.7); Absolute Lymphocyte Count 2.55 k/cumm (1.2-3.4); Absolute Monocyte Count 0.78 k/cumm (0.11-0.7); Absolute Neutrophil Count 5.13 k/cumm (1.2-6.7); Basophils % 0.6; Eosinophils % 2.5; HCT 39.8 % (36.0-46.0); HGB 13.1 g/dL (12.0-15.5); Immature Grans % 0.1; Lymphocytes % 29.2; Mean Corp. HGB Concentration 32.9 g/dL (32.0-36.0); Mean Corpuscular Hemoglobin 29.8 pg (27.0-33.0); Mean Corpuscular Volume 90.5 fL (80-95); Mean Platelet Volume 10.6 fL (8.0-11.0); Monocytes % 8.9; Neutrophils % 58.7; Platelet Count 334 x1000/uL (130-400); RBC Distribution Width 12.7 % (11.7-14.6); White Blood Cell Count 8.74 k/cumm (4.4-10.8)
--- NOTE | 2018-11-20 10:05 | NUR.NOTE ---
1004 NEkhs WORKER STATES THERE IS NO CONCERN ABOUT ALCOHOL OR DRUG WITHDRAWAL. THE NE[facility] STATES THERE IS NO NEED FOR WITHDRAWAL PRECAUTIONS. Nursing Note:
--- NOTE | 2018-11-20 10:07 | W.INMHPGNOTE ---
Date of service: 11/20/18 Time of Service: 10:07 Mental Health Crisis Note Presenting Issue How did you arrive at the ED and why did you come: Parul has been held at [facility] since Tuesday evening on an involuntary hold for treatment. Precipitating Factors She recently has lost her mother due to . She has ran away from home reporting she needs to get away from her family, but is unable or unwilling to explain at this time. She denies suicidal or homicidal ideation, planning, intent, or attempts. She has a history of past psychiatric hospitalizations both voluntary and involuntary. She continues to have little insight into her departure, plan, or mental health or medical treatment needs. Disposition BEHAVIOR: distant, took medication Risperdal last night (this is only medication ordered at this time) EYE CONTACT: poor MOOD: depressed/withdrawn AFFECT: blunted to avoidant APPETITE: fair to poor SLEEP(trouble falling/staying asleep: fair Plan Continue to seek placement for psychiatric care while holding her at [facility] until placement is completed. Information has been sent to [facility], [facility], and [facility]. No other beds available at this time.
--- NOTE | 2018-11-20 10:19 | MHPN_ITS ---
Date of service: 11/20/18 Time of Service: 10:07 Mental Health Crisis Note Presenting Issue How did you arrive at the ED and why did you come: Parul has been held at [facility] since Tuesday evening on an involuntary hold for treatment. Precipitating Factors She recently has lost her mother due to . She has ran away from home reporting she needs to get away from her family, but is unable or unwilling to explain at this time. She denies suicidal or homicidal ideation, planning, intent, or attempts. She has a history of past psychiatric hospitalizations both voluntary and involuntary. She continues to have little insight into her departure, plan, or mental health or medical treatment needs. Disposition BEHAVIOR: distant, took medication Risperdal last night (this is only medication ordered at this time) EYE CONTACT: poor MOOD: depressed/withdrawn AFFECT: blunted to avoidant APPETITE: fair to poor SLEEP(trouble falling/staying asleep: fair Plan Continue to seek placement for psychiatric care while holding her at [facility] until placement is completed. Information has been sent to [facility], [facility], and [facility]. No other beds available at this time.
--- NOTE | 2018-11-20 16:05 | PDOC.CMPRO ---
- If Service Date Differs Date of service: 11/20/18 Time of Service: 16:05 Care Management Progress Note INVOLUNTARY FOR INPATIENT PSYCHIATRIC STABILIZATION. During CM visit, Parul answered questions hesitantly and appeared unsure of her answers. She stated that she lives alone in a house in [place] and that she has no relatives. When asked about supports and relationships, she says there is no one in [place] that is any good for her. They are all bad. She was unable or unwilling to elaborate on that statement. When asked about income, again she was unable/unwilling to provide information. 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 Parul did not maintain eye contact with and showed little facial expression. Nursing reports that Parul has been pleasant and cooperative and follows directions easily. She has been eating and drinking and seemed more appropriate today than yesterday. Parul remains involuntary with safety plan in place, and CPS[employer]. Safety plan has been established with patient, and care team, to adhere to patient goals, identify restrictions based on behavioral status, address nutrition, and determine allowed personal belongings, tools for hygiene and personal care. Determine level of activity including ambulation, level of supervision, visitors, and determine privileges based on behaviors and level of engagement by pt. communicated the plan to the primary RN, RN CC, RN aircraft maintenance supervisor as well as the provider. CM met with mental health [facility] and reviewed referrals. Jonathan and KEY are considering referral. [facility] will revaluate beds tomorrow. MH crisis to coordinate transportation by lead electrical controls engineer when bed is available. SAFETY PLAN: 1. Will remain on safety precautions. In Paper Clothing. 2. Will remain in room under direct supervision of one-on-one staff at all times provided by [employer]; RUSH, MACHINE FILLER SERVICER clothing room supervisor. 3. May have paper cups, plates, finger foods as well as a metal spoon with which to eat meals. [facility] staff will be responsible for accounting of utensils after meals. 4. Follow [facility] Management of the Admitted Behavioral Health Patient policy. 5. Comfort bath or shower with supervision. 6. No personal belongings 7. Visitors- She declines any visitors at this time 8. Activities: Coloring, music, television, cards, crayons or soft tip markers 9. Phone: Patient may talk to her sister Cierra or her son Nuno over the phone at the discretion of primary care team. Patient is currently involuntarily at [facility] and seeking inpatient admission when a bed becomes available. [facility] Frontline Machine Hostler will continue seeking placement. Please contact the Enterprise Sales Executive Program Manager Environmental Planning ([phone]) and [facility] Machine Hostler ([phone]) for any needed changes in the Safety Plan. Safety plan has been reviewed and in the EMR for view. CM provided copy to receiving unit.
[2018-11-20 16:10] VITALS: BP 130/88; PULSE 81; RESP 18; TEMP 37.4; O2SAT 93
--- NOTE | 2018-11-20 16:32 | CMPROGNOTE_ITS ---
- If Service Date Differs Date of service: 11/20/18 Time of Service: 16:05 Care Management Progress Note INVOLUNTARY FOR INPATIENT PSYCHIATRIC STABILIZATION. During CM visit, Parul answered questions hesitantly and appeared unsure of her answers. She stated that she lives alone in a house in [place] and that she has no relatives. When asked about supports and relationships, she says there is no one in [place] that is any good for her. They are all bad. She was unable or unwilling to elaborate on that statement. When asked about income, again she was unable/unwilling to provide information. 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 Parul did not maintain eye contact with and showed little facial expression. Nursing reports that Parul has been pleasant and cooperative and follows directions easily. She has been eating and drinking and seemed more appropriate today than yesterday. Parul remains involuntary with safety plan in place, and CPSO. Safety plan has been established with patient, and care team, to adhere to patient goals, identify restrictions based on behavioral status, address nutrition, and determine allowed personal belongings, tools for hygiene and personal care. Determine level of activity including ambulation, level of supervision, visitors, and determine privileges based on behaviors and level of engagement by pt. communicated the plan to the primary RN, RN CC, RN counter supervisor as well as the provider. CM met with mental health [facility] and reviewed referrals. Jonathan and [facility] are considering referral. [facility] will revaluate beds tomorrow. MH crisis to coordinate transportation by senior maintenance mechanic when bed is available. SAFETY PLAN: 1. Will remain on safety precautions. In Paper Clothing. 2. Will remain in room under direct supervision of one-on-one staff at all times provided by [employer]; RUSH, ACCOUNT MANAGER EMPLOYEE BENEFITS desktop support engineer. 3. May have paper cups, plates, finger foods as well as a metal spoon with which to eat meals. [facility] staff will be responsible for accounting of utensils after meals. 4. Follow [facility] Management of the Admitted Behavioral Health Patient policy. 5. Comfort bath or shower with supervision. 6. No personal belongings 7. Visitors- She declines any visitors at this time 8. Activities: Coloring, music, television, cards, crayons or soft tip markers 9. Phone: Patient may talk to her sister Cierra or her son Nuno over the phone at the discretion of primary care team. Patient is currently involuntarily at [facility] and seeking inpatient admission when a bed becomes available. [facility] Frontline Type Casting Machine Operator will continue seeking placement. Please contact the Flame Cutting Supervisor Management Scientist ([phone]) and [facility] Type Casting Machine Operator ([phone]) for any needed changes in the Safety Plan. Safety plan has been reviewed and in the EMR for view. CM provided copy to receiving unit.
--- NOTE | 2018-11-20 18:50 | W.PM.PROGNOT ---
Date of Service Date of service: 11/20/18 Time of Service: 18:50 Assessment and Plan (1) Acute paranoia: Current visit: Yes Status: Acute EE'ed. Awaiting a psychiatric bed. Continue home risperidone. (2) Schizo-affective type schizophrenia, subchronic state with acute exacerbation: Current visit: Yes Status: Chronic Continue risperidone. Read above (3) Polysubstance abuse: Current visit: Yes Status: Acute Patient's urine drug screen was positive for amphetamines and barbiturates but not opiates. Patient is not able to discuss drug use. (4) TSH elevation: Current visit: Yes Status: Acute TSH is only minimally elevated and is more consistent with subclinical hypothyroidism; her FT4 is within normal limits. No further workup or treatment indicated at this time. (5) Leucocytosis: Current visit: Yes Status: Acute Resolved. Possibly due to acute psychosis - or reaction to route of her taking the amphetamines. (6) Discharge planning issues: Current visit: Yes Status: Acute Full code. Anticipated transfer to a psychiatric bed tomorrow (7) DVT prophylaxis: Current visit: Yes Status: Acute Not indicated in an ambulatory patient not in the hospital for a medical reason Subjective Interval history since last seen: Ms Jeter states she is still fine. Denies dizziness, chest pain, shortness of breath, nausea, vomiting. No mental health bed is yet available. Exam Narrative Exam Narrative: General: Middle Aged female, anxious, standing up while eating HEENT: EOMI, MMM; Heart: RRR, no m/r/g Lungs: CTAB GI: abdomen is soft, nontender, nondistended Extremities: no e/c/c BLE's; 2+ pedal pulses B Objective Objective Clinical Data: Abnormal lab results 11/20/18 Range/Units 06:45 Absolute Monocytes 0.78 H (0.11-0.7) k/cumm Vital Signs Temperature 37.4 C 11/20/18 16:10 Temperature Source Tympanic 11/20/18 16:10 Pulse 81 11/20/18 16:10 Pulse Rhythm Regular 11/20/18 08:02 Respiratory Rate 18 11/20/18 16:10 Respiratory Effort Non-Labored 11/20/18 08:02 Respiratory Depth Normal 11/20/18 08:02 Respiratory Pattern Normal 11/20/18 08:02 Blood Pressure 130/88 11/20/18 16:10 Pulse Oximetry 93 L 11/20/18 16:10 Oxygen Delivery Method Room Air 11/20/18 16:10 Oxygen Flow Rate 0 11/20/18 16:10 Pain Level 0 11/20/18 16:10 Intake & Output 11/19/18 11/20/18 11/20/18 23:59 11:59 23:59 Intake Total 890 / 890 Balance 890 / 890 Intake: Oral 890 / 890 Other: Urine Color Yellow Urine Appearance Clear Clear Urine Odor None Voiding Methods Toilet Laboratory Results WBC 8.74 k/cumm (4.4-10.8) 11/20/18 06:45 RBC 4.40 m/cumm (4.00-5.20) 11/20/18 06:45 Hgb 13.1 g/dL (12.0-15.5) 11/20/18 06:45 Hct 39.8 % (36.0-46.0) 11/20/18 06:45 MCV 90.5 fL (80-95) 11/20/18 06:45 MCH 29.8 pg (27.0-33.0) 11/20/18 06:45 MCHC 32.9 g/dL (32.0-36.0) 11/20/18 06:45 RDW 12.7 % (11.7-14.6) 11/20/18 06:45 Plt Count 334 x1000/uL (130-400) 11/20/18 06:45 MPV 10.6 fL (8.0-11.0) 11/20/18 06:45 Immature Gran % 0.1 11/20/18 06:45 Neutrophils % 58.7 11/20/18 06:45 Lymphocytes % 29.2 11/20/18 06:45 Monocytes % 8.9 11/20/18 06:45 Eosinophils % 2.5 11/20/18 06:45 Basophils % 0.6 11/20/18 06:45 Absolute Neutrophils 5.13 k/cumm (1.2-6.7) 11/20/18 06:45 Absolute Lymphocytes 2.55 k/cumm (1.2-3.4) 11/20/18 06:45 Absolute Monocytes 0.78 k/cumm (0.11-0.7) H 11/20/18 06:45 Absolute Eosinophils 0.22 k/cumm (0.0-0.7) 11/20/18 06:45 Absolute Basophils 0.05 k/cumm (0.0-0.2) 11/20/18 06:45 Sodium 140 mmol/L (136-145) 11/19/18 10:50 Potassium 3.7 mmol/L (3.5-5.1) 11/19/18 10:50 Chloride 103 mmol/L (98-107) 11/19/18 10:50 Carbon Dioxide 26.8 mmol/L (21.0-32.0) 11/19/18 10:50 Anion Gap 10.2 mmol/L (3-11) 11/19/18 10:50 BUN 15 mg/dL (7-18) 11/19/18 10:50 Creatinine 0.57 mg/dL (0.55-1.02) 11/19/18 10:50 Estimated GFR/1.73 m2 >= 60.00 (mL/min/1.73m2) 11/19/18 10:50 Glucose 95 mg/dL (70-100) 11/19/18 10:50 Calcium 9.0 mg/dL (8.5-10.1) 11/19/18 10:50 Magnesium 2.1 mg/dL (1.8-2.4) 11/19/18 10:50 Total Bilirubin 0.6 mg/dL (0.2-1.0) 11/17/18 23:15 AST 13 U/L (15-37) L 11/17/18 23:15 ALT 17 U/L (12-78) 11/17/18 23:15 Alkaline Phosphatase 72 U/L (46-116) 11/17/18 23:15 Total Protein 8.1 g/dL (6.4-8.2) 11/17/18 23:15 Albumin 4.0 g/dL (3.4-5.0) 11/17/18 23:15 TSH 4.47 uIU/mL (0.358-3.74) H 11/17/18 23:15 Free T4 1.36 ng/dL (0.76-1.46) 11/19/18 06:15 Urine Color Yellow (Yellow) 11/18/18 00:48 Urine Clarity Clear 11/18/18 00:48 Urine pH 6.0 (5-8) 11/18/18 00:48 Ur Specific [place] >= 1.030 (1.005-1.025) H 11/18/18 00:48 Urine Protein 100 mg/dL (Negative) H 11/18/18 00:48 Urine Ketones Negative mg/dL (Negative) 11/18/18 00:48 Urine Blood Trace-intact (Negative) H 11/18/18 00:48 Urine Nitrite Negative (Negative) 11/18/18 00:48 Urine Bilirubin Negative (Negative) 11/18/18 00:48 Urine Urobilinogen 0.2 EU/dL (Up TO 0.2) 11/18/18 00:48 Ur Leukocyte Esterase Negative (Negative) 11/18/18 00:48 Urine RBC 0-2 (0-2) 11/18/18 00:48 Urine WBC 0-2 HPF (0-5) 11/18/18 00:48 Ur Epithelial Cells Many HPF (Negative) 11/18/18 00:48 Urine Crystals Negative HPF (Negative) 11/18/18 00:48 Urine Bacteria Moderate HPF (Negative) 11/18/18 00:48 Urine Casts Negative LPF (Negative) 11/18/18 00:48 Urine Mucus Heavy (Negative) 11/18/18 00:48 Ur Culture Indicated? No/sq. contamination 11/18/18 00:48 Urine Glucose Negative mg/dL (Negative) 11/18/18 00:48 Salicylates < 2.8 mg/dL (2.8-20.0) L 11/17/18 23:15 Urine Opiates Screen Negative (Negative) 11/18/18 00:48 Urine Methadone Screen Negative (Negative) 11/18/18 00:48 Acetaminophen < 2 ug/mL (10-30) L 11/17/18 23:15 Ur Barbiturates Screen Positive (Negative) 11/18/18 00:48 Ur Tricyclics Screen Negative (Negative) 11/18/18 00:48 Ur Amphetamines Screen Positive (Negative) 11/18/18 00:48 U Benzodiazepines Scrn Negative (Negative) 11/18/18 00:48 Urine Cocaine Screen Negative (Negative) 11/18/18 00:48 Ur THC Screen Negative (Negative) 11/18/18 00:48 Ethyl Alcohol < 3.0 mg/dL (<3) 11/17/18 23:15
[2018-11-20] MEDS: risperiDONE 1 MG TAB PO (21:21)
[2018-11-21] VITALS: BP 124/80; PULSE 80; RESP 18; TEMP 36.8; O2SAT 95
[2018-11-21 10:30] VITALS: BP 108/76; PULSE 83; RESP 18; TEMP 36.4; O2SAT 93
--- NOTE | 2018-11-21 10:56 | W.PM.DS.N ---
Date of service: 11/21/18 Time of Service: 10:56 DS: Diagnosis Discharge Diagnosis (1) Acute paranoia: Status: Acute (2) Schizo-affective type schizophrenia, subchronic state with acute exacerbation: Status: Chronic (3) Polysubstance abuse: Status: Acute (4) TSH elevation: Status: Acute (5) Leucocytosis: Status: Acute Discharge Plan Disposition Patient Disposition: [facility] Condition: Stable Discharge Details Reason For Visit: ACUTE PARANOIA,SCHIZOPHRENIA UNTREATED, Admit Date/Time: 11/20/18 19:36 Admit Provider: Huseyin Juan Attending Provider: Huseyin Juan [facility] Hospital Course: Parul Jeter is a 53-year-old female with a history of schizophrenia who presented to the emergency department for a mental health evaluation after being found in a car at a local convenient store. She reportedly is from [place] and drove her car to [place], she was noted to have acute paranoia with confusion. She was unable to answer questions appropriately in the ED. She was unable to state where she was or the date. The emergency department attending was able to speak with her son who confirmed a history of schizophrenia. He also notes that she normally takes Invega sustenna 156 mg IM Q 4 weeks, and she missed her dose on 11/17/18, as well as risperidone 1 mg PO QHS. Her risperidone was continued while she was here at the hospital. The hospital did not have Invega sustenna available, and it is unclear that this is the appropriate medication medication for her. She reportedly ran away from home in [place] to [place] recently. In the emergency department, she was noted to have a mild leukocytosis which has since resolved. She had a urine drug screen which was positive for amphetamines and barbiturates, she was unable to answer questions about drug use. There was concern that polysubstance abuse may be a factor in her altered mental status. She had a urinalysis which was not suspicious for infection. The initial plan in the ED was to release her to the care of her son, however, he reported that he did not feel safe taking her home in her present condition. When presented with this option, the patient refused to be discharged to her son's care. At that time, it was determined that she was not safe for discharge and did not have the capacity to make decisions for herself. She was seen by mental health and placed on an EEG status. She transition to observation on the MedSurg floor while awaiting a bed at a mental health facility. She has been cooperative while on the MedSurg floor. She has had a one-to-one patient observer continuously. She has been accepted at [facility] to the psychiatric unit. She will be transferred via [employer] to [facility] where she will receive appropriate psychiatric care. Home Meds and New Rx's Prescriptions: Continued risperidone [Risperdal] 2 mg Tablet 1 mg QHS RF: 0 Discharge Instructions Instructions: Schizophrenia (DC) Stand Alone Forms: Nursing Discharge Form Activity:: Activity as Tolerated Equipment/Supplies:: No Equipment Needed Diet:: As Tolerated Discharge Orders Discharge Orders: Discharge Order (Routine); Ordered 11/21/18 Ordered By: Mela Landon Exam Narrative Exam Narrative: General: Middle Aged female, sitting up in bed, watching TV, does not appear to be in any acute distress. Answers some questions, refuses to answer others. HEENT: Normocephalic, atraumatic, pupils equal round, extraocular movements intact, mucous membranes moist. Heart: Regular rate and rhythm, no murmur appreciated. Lungs: Respirations even and unlabored, lung sounds clear bilaterally. GI: Normoactive bowel sounds throughout, abdomen is soft, nontender on palpation, nondistended Extremities: Bilateral lower extremities are without clubbing, cyanosis or edema. 2+ pedal pulses bilaterally. DS: Data Vitals/I&O Vitals and I&O: Vital Signs Temperature 36.4 C L 11/21/18 10:30 Temperature Source Tympanic 11/21/18 10:30 Pulse 83 11/21/18 10:30 Pulse Rhythm Regular 11/21/18 08:01 Respiratory Rate 18 11/21/18 10:30 Respiratory Effort Non-Labored 11/21/18 08:01 Respiratory Depth Normal 11/21/18 08:01 Respiratory Pattern Normal 11/21/18 08:01 Blood Pressure 108/76 11/21/18 10:30 Pulse Oximetry 93 L 11/21/18 10:30 Oxygen Delivery Method Room Air 11/21/18 10:30 Oxygen Flow Rate 0 11/21/18 10:30 Pain Level 0 11/20/18 16:10 Intake & Output 11/20/18 11/20/18 11/21/18 11:59 23:59 11:59 Intake Total 890 / 890 Balance 890 / 890 Intake: Oral 890 / 890 Other: Urine Color Yellow Urine Appearance Clear Clear Clear Urine Odor None Strong Comment pt flushed Voiding Methods Toilet PFSH Medical History Schizophrenia (Chronic) Social History Smoking/Tobacco Use Status: Never Alcohol Intake: never Drug use: Never Do you feel safe at home: No
--- NOTE | 2018-11-21 11:11 | W.INMHPGNOTE ---
Date of service: 11/21/18 Time of Service: 11:11 Mental Health Crisis Note Presenting Issue How did you arrive at the ED and why did you come: Patient arrived to [facility] following a wellness check called in by a liquified natural gas specialist due to her being in the parking lot a long time and not getting out of her car. Precipitating Factors Parul continues to deny she is suicidal or homicidal at this time. However, she has a history of major mental illness and is past due for a monthly injection of Invega. She was called in a runaway due to leaving her house without telling anyone. She drove her vehicle for several days and was disoriented with signs of paranoia while she was in the hospital. She has not been able to advocate for her care or make decisions about what she is going to do when she leaves the hospital. As a result, her safety and her ability to manage her healthcare needs remain risk factors that are significant enough to keep in a hospital for relevant treatment for symptoms of psychoses present at this time. Disposition BEHAVIOR: cooperative but distant EYE CONTACT: fair MOOD: flat AFFECT: subdued to constricted/guarded APPETITE: fair SLEEP(trouble falling/staying asleep: good Plan Parul has been accepted to [facility] for psychiatric care. She will be transported via [employer]. Transport order has been completed. Signature Clinician's Name/Title: Xu Patel MA [facility]
--- NOTE | 2018-11-21 11:19 | MHPN_ITS ---
Date of service: 11/21/18 Time of Service: 11:11 Mental Health Crisis Note Presenting Issue How did you arrive at the ED and why did you come: Patient arrived to [facility] following a wellness check called in by a gas fitter apprentice due to her being in the parking lot a long time and not getting out of her car. Precipitating Factors Parul continues to deny she is suicidal or homicidal at this time. However, she has a history of major mental illness and is past due for a monthly injection of Invega. She was called in a runaway due to leaving her house without telling anyone. She drove her vehicle for several days and was disoriented with signs of paranoia while she was in the hospital. She has not been able to advocate for her care or make decisions about what she is going to do when she leaves the hospital. As a result, her safety and her ability to manage her healthcare needs remain risk factors that are significant enough to keep in a hospital for relevant treatment for symptoms of psychoses present at this time. Disposition BEHAVIOR: cooperative but distant EYE CONTACT: fair MOOD: flat AFFECT: subdued to constricted/guarded APPETITE: fair SLEEP(trouble falling/staying asleep: good Plan Parul has been accepted to [facility] for psychiatric care. She will be transported via [facility]. Transport order has been completed. Signature Clinician's Name/Title: Xu Patel MA [facility]
--- NOTE | 2018-11-21 21:43 | PDOC.CMDIS ---
- If Service Date Differs Date of service: 11/21/18 Time of Service: 12:00 LACE Index Scoring Tool - Questions: Length of Stay (in days): 3 Acuity (Admit via E.D.?): Yes E.D. Visits: 1 - Answers: Total Score: 7 Risk of Readmission: Low Risk Care Management Discharge Reason for Hospitalization: Psychiatric stablization Discharge Plan: Parul in being discharged to [facility] for psychiatric care. Parul is able to be discharged without incident. She was transported via farm management agent coordinated by . Family was updated over the phone and belongings went with her. Patient/Family Education Needs: Transfer education and expectations including reason for transfer. Services Needed at Discharge: Psychiatric Facility, Transportation - Services (Omit if N/A) Current Services: Psychiatric Inp
--- NOTE | 2018-11-21 21:50 | CMDISCH_ITS ---
- If Service Date Differs Date of service: 11/21/18 Time of Service: 12:00 LACE Index Scoring Tool - Questions: Length of Stay (in days): 3 Acuity (Admit via E.D.?): Yes E.D. Visits: 1 - Answers: Total Score: 7 Risk of Readmission: Low Risk Care Management Discharge Reason for Hospitalization: Psychiatric stablization Discharge Plan: Parul in being discharged to [facility] for psychiatric care. Parul is able to be discharged without incident. She was transported via [employer] by . Family was updated over the phone and belongings went with her. Patient/Family Education Needs: Transfer education and expectations including reason for transfer. Services Needed at Discharge: Psychiatric Facility, Transportation - Services (Omit if N/A) Current MH Services: Psychiatric Inp
== END 2018-11-21 12:02 | DRG 885 ==
LOC: ER 11-18 20:17 → MS 11-18 21:57
PROVIDERS: Emergency Medicine; Internal Medicine; Admitting Provider Family Medicine; Emergency Provider Physician Assistant; Visit Provider Family Medicine
DX: F22 Delusional disorders (principal); F25.8 Other schizoaffective disorders; F19.10 Other psychoactive substance abuse, uncomplicated; R94.6 Abnormal results of thyroid function studies; D72.829 Elevated white blood cell count, unspecified; I50.82 Biventricular heart failure; Z75.1 Person awaiting admission to adequate facility elsewhere
CPT/HCPCS: 36415; 80048; 80053; 80307; 81025; 99219; 99224; 99225; 99239; 99285; 80320; 80329; 81003; 81015; 83735; 84439; 84443; 85025; 99284; G0378